=== PATIENT | male | born 1970 | race Caucasian/White ===

== ENCOUNTER 2023-06-09 06:54 | Emergency (ER) | payer OTHER, SELFPAY ==
[2023-06-09 07:03] VITALS: BP 158/111; PULSE 66; RESP 18; TEMP 36.4; O2SAT 98; BMI 22.3
--- NOTE | 2023-06-09 07:25 | CRLHL7_ITS ---
For Patients: As a result of the Century Cures Act, medical imaging exams and procedure reports are released immediately into your electronic medical record. You may view this report before your referring provider. If you have questions, please contact your health care provider. INDICATION: Right lower quadrant pain. TECHNIQUE: CT abdomen and pelvis acquired with 79 cc Isovue 370 IV contrast. COMPARISON: None. FINDINGS: Lower chest: Unremarkable. Liver: Unremarkable. Normal in size and attenuation. No suspicious masses. Gallbladder and bile ducts: Unremarkable. No stones or inflammation. No biliary dilatation. Pancreas: Unremarkable. No mass or inflammation. Spleen: Unremarkable. Normal in size. No masses. Adrenal glands: Unremarkable. No nodules. Kidneys: Unremarkable. No suspicious masses, stones, or hydronephrosis. GI tract: There is segmental circumferential low density wall thickening of the duodenum involving the 2nd segment of the duodenal sweep and, to a lesser degree, the duodenal bulb. Focal irregularity of the mucosa along the anterior aspect of the 2nd segment of the duodenum (series 2; images 49, 50 and series 6; image 44) is suspicious for an ulcer. Findings are consistent with duodenitis, most likely due to peptic ulcer disease. Periduodenal inflammatory fat stranding is in the anterior perirenal space. Normal appendix. Vasculature: Abdominal aorta is normal in caliber. Mesenteric arteries are patent. Lymph nodes: No lymphadenopathy. Peritoneum/Abdominal Wall: Unremarkable. No sign of mass or infiltration. No free air or significant free fluid. Pelvis: Unremarkable. Bones: T10-T11 and moderate disc degeneration with discogenic sclerosis of the anteroinferior T10 vertebral body. IMPRESSION: There is segmental circumferential low density wall thickening of the duodenum involving the 2nd segment of the duodenal sweep and, to a lesser degree, the duodenal bulb. Focal irregularity of the mucosa along the anterior aspect of the 2nd segment of the duodenum (series 2; images 49, 50 and series 6; image 44) is suspicious for an ulcer. Findings are consistent with duodenitis, most likely due to peptic ulcer disease. Periduodenal inflammatory fat stranding is in the anterior perirenal space. Gastroenterology consultation is recommended for consideration of further evaluation (endoscopy). Normal appendix. Please note that all CT scans at this facility use dose modulation, iterative reconstruction, and/or weight-based dosing when appropriate to reduce radiation dose to as low as reasonably achievable. Dictated by Junior Garner MD @ 06/09/2023 8:13:01 AM (Electronically Signed)
--- NOTE | 2023-06-09 07:31 | ED.GENADULT ---
HPI - General Adult General Chief complaint: Abdominal Pain <Mayte Duvall MD - Last Filed: 06/16/23 23:55> Stated complaint: stomach pain <Mayte Duvall MD - Last Filed: 06/16/23 23:55> Time Seen by Provider: 06/09/23 07:18 <Mayte Duvall MD - Last Filed: 06/16/23 23:55> History of Present Illness HPI narrative: 53-year-old male presents to the emergency department with generalized malaise and body aches but now developing periumbilical abdominal pain. Symptoms started 5 days ago, initially with the body aches and feeling chilled. He also had a mild headache which has now resolved. The next day he had sweats and generalized malaise. He slept the next couple of days, taking NyQuil for his symptoms. He did not have any cough or congestion. 2 days ago he started developing periumbilical area abdominal pain, nonradiating, constant and achy in nature. Poor appetite the last 3 days. Two days ago, he tried eating a bowl of cereal and it went okay. He has not had any nausea or vomiting. He said that when he went up to go to the bathroom, thinking that things would improve if he had a bowel movement, he had a brief syncopal spell that was witnessed by his . She said that he was only out a couple of seconds and she was able to help him back into bed and he has not experienced any similar episodes since. No rash, no pertinent travel. was ill with mild viral symptoms initially but she has recovered. No diarrhea, no bloody stools. Has not tried any pain medication to help with the abdominal pain. No prior history of abdominal surgeries, no long-term medications. Past medical history benign per his report, no allergies no medications. He is a smoker. ROS is notable for the generalized an abdominal symptoms as described above, otherwise denies times 12 systems. <Mayte Duvall MD - Last Filed: 06/16/23 23:55> Related Data Home medications: Previous Rx's Medication Instructions Recorded metronidazole 500 mg tablet 2,000 mg (4 x 500 mg) PO ONCE #4 06/09/23 tabs omeprazole 20 mg capsule,delayed 20 mg PO DAILY #30 caps 06/09/23 release <Mayte Duvall MD - Last Filed: 06/16/23 23:55> Allergies/adverse reactions: Allergies Allergy/AdvReac Type Severity Reaction Status Date / Time No Known Drug Allergies Allergy Unverified 06/16/23 13:38 <Mayte Duvall MD - Last Filed: 06/16/23 23:55> [facility] Medical History: Medical History (Updated 06/16/23 @ 13:43 by Geraldine Burns) Back pain (2016) ?M54.9 - Dorsalgia, unspecified (ICD-10) <Mayte Duvall MD - Last Filed: 06/16/23 23:55> Surgical History: Surgical History (Updated 06/16/23 @ 13:49 by Geraldine Burns) History of adenoidectomy ?Z90.89 - Acquired absence of other organs (ICD-10) History of placement of ear tubes ?Z96.22 - Myringotomy tube(s) status (ICD-10) History of oral surgery (10/29/11) ?Z98.890 - Other specified postprocedural states (ICD-10) <Mayte Duvall MD - Last Filed: 06/16/23 23:55> Social History: Social History Smoking Status: Current every day smoker What tobacco products do you use: cigarettes Smoking packs per day: 0.75 Smoking cigarettes per day: 15.0 Years smoked: 38 Smoking pack-years: 28.50 Do you use any of these nicotine containing products: None Second hand tobacco smoke exposure: Yes How often do you have a drink containing alcohol: monthly or less How many standard drinks containing alcohol do you have on a typical day: 1 or 2 How often do you have six or more drinks on one occasion: Never AUDIT-C Alcohol total score: 1 Non-prescribed substance use: marijuana (any form) Non-prescribed substance use details: smokes marijuana daily service: No <Mayte Duvall MD - Last Filed: 06/16/23 23:55> Exam Const: Vital Signs, click to edit/add: Vital Signs - 24 hr 06/09/23 07:03 Temperature 97.6 F Pulse Rate [Pulse Oximeter] 66 Respiratory Rate 18 Blood Pressure [Ri ght Upper Arm] 158/111 H Pulse Oximetry 98 Oxygen Delivery Me thod Room Air <Mayte Duvall MD - Last Filed: 06/16/23 23:55> Vital Signs, click to edit/add: Vital Signs - 24 hr 06/09/23 07:03 Temperature 97.6 F Pulse Rate [Pulse Oximeter] 66 Respiratory Rate 18 Blood Pressure [Ri ght Upper Arm] 158/111 H Pulse Oximetry 98 Oxygen Delivery Me thod Room Air <Cindi Phillips MD - Last Filed: 06/09/23 08:42> Documenting provider has reviewed patient's vital signs: yes <Mayte Duvall MD - Last Filed: 06/16/23 23:55> Common normals: no apparent distress and alert <Mayte Duvall MD - Last Filed: 06/16/23 23:55> Orientation/consciousness: Yes awake <Mayte Duvall MD - Last Filed: 06/16/23 23:55> Other: Appears nontoxic. Answers questions appropriately, no signs of delirium. <Mayte Duvall MD - Last Filed: 06/16/23 23:55> HENMT: Common normals: normocephalic <Mayte Duvall MD - Last Filed: 06/16/23 23:55> Head and scalp: normocephalic <Mayte Duvall MD - Last Filed: 06/16/23 23:55> Face and sinus: normal facial exam <Mayte Duvall MD - Last Filed: 06/16/23 23:55> Throat: posterior oropharynx normal <Mayte Duvall MD - Last Filed: 06/16/23 23:55> Other: Very poor dentition with multiple dental caries, broken teeth. <Mayte Duvall MD - Last Filed: 06/16/23 23:55> Eye: Common normals: conjunctivae normal <Mayte Duvall MD - Last Filed: 06/16/23 23:55> General eye: normal appearance of both eyes <Mayte Duvall MD - Last Filed: 06/16/23 23:55> Conjunctiva: conjunctiva(e) normal <Mayte Duvall MD - Last Filed: 06/16/23 23:55> Neck & C-Spine: Common normals: full ROM and no lymphadenopathy <Mayte Duvall MD - Last Filed: 06/16/23 23:55> Chest: Common normals: inspection of chest normal <Mayte Duvall MD - Last Filed: 06/16/23 23:55> Resp: Common normals: normal respiratory effort, no use of accessory muscles and clear to auscultation bilaterally <MD Sarah Nielson Last Filed: 06/16/23 23:55> Effort & inspection: able to speak in complete sentences <Mayte Duvall MD - Last Filed: 06/16/23 23:55> Auscultation: clear to auscultation bilaterally <Mayte Duvall MD - Last Filed: 06/16/23 23:55> Cardio: Common normals: regular rate, regular rhythm, S1 normal heart sound, S2 normal heart sound and no murmurs <Mayte Duvall MD - Last Filed: 06/16/23 23:55> Rate: regular rate <Mayte Duvall MD - Last Filed: 06/16/23 23:55> Rhythm: regular rhythm <Mayte Duvall MD - Last Filed: 06/16/23 23:55> Heart sounds: S1 normal and S2 normal <Mayte Duvall MD - Last Filed: 06/16/23 23:55> GI: Common normals: Normal to inspection, nondistended, normoactive bowel sounds present, soft to palpation, no hepatosplenomegaly and no masses <Mayte Duvall MD - Last Filed: 06/16/23 23:55> Palpation: soft and no hepatosplenomegaly <Mayte Duvall MD - Last Filed: 06/16/23 23:55> Other: Tender to palpation in right lower quadrant only. No rebound tenderness or guarding. <Mayte Duvall MD - Last Filed: 06/16/23 23:55> : Common normals: no CVA tenderness <Mayte Duvall MD - Last Filed: 06/16/23 23:55> Bladder/kidney exam: no CVA tenderness <Mayte Duvall MD - Last Filed: 06/16/23 23:55> Back & Pelvis: Common normals: no CVA tenderness <Mayte Duvall MD - Last Filed: 06/16/23 23:55> Extremity: Common normals: normal to inspection, normal capillary refill and no pedal edema <Mayte Duvall MD - Last Filed: 06/16/23 23:55> Neuro: Sensorium/orientation: awake and alert <Mayte Duvall MD - Last Filed: 06/16/23 23:55> Speech: speech normal <Mayte Duvall MD - Last Filed: 06/16/23 23:55> Motor exam: no movement abnormalities noted <Mayte Duvall MD - Last Filed: 06/16/23 23:55> Psych: Attitude: engaged <Mayte Duvall MD - Last Filed: 06/16/23 23:55> Activity/motor behavior: appropriate eye contact <Mayte Duvall MD - Last Filed: 06/16/23 23:55> Insight: insight good <Mayte Duvall MD - Last Filed: 06/16/23 23:55> Judgement: judgment good <Mayte Duvall MD - Last Filed: 06/16/23 23:55> Skin: Common normals: no rashes or lesions noted <Mayte Duvall MD - Last Filed: 06/16/23 23:55> General skin exam: no rashes or lesions noted <Mayte Duvall MD - Last Filed: 06/16/23 23:55> Course Course ED Course: Differential diagnosis including diverticulitis, appendicitis, viral enteritis, systemic viral infection like influenza, COVID or something similar. Cannot exclude pancreatitis, gallbladder disease or other intra-abdominal process. Stories overall concerning for infection and the syncopal episode is suspicious for dehydration and acute illness. Patient is declining pain medication for now. Will start an IV line, 1 L of normal saline, basic labs including lactate, metabolic panel, CRP, CBC, urinalysis and alcohol level. Viral swabs. Because of the right lower quadrant pain, will also order CT scan of the abdomen and pelvis. Anticipate handing over care to my in coming day shift partner. <Mayte Duvall MD - Last Filed: 06/16/23 23:55> Reevaluation(s) Reevaluation #1: I was asked to follow-up on the labs and imaging results of this patient. WBC was slightly elevated. The remainder of the blood work was unremarkable. Abdominal CT scan shows duodenitis likely secondary to peptic ulcer. Urinalysis returned and was positive for Trichomonas. We will add a chlamydia and gonorrhea to his urine tests which are pending at this time. And patient will be sent home with metronidazole. He is instructed to tell his sexual partners to get checked as well. Of note, patient denies any symptoms such as dysuria or penile discharge. <Cindi Phillips MD - Last Filed: 06/09/23 08:42> Vital Signs Vital signs: Initial Vital Signs Temperature 97.6 F 06/09/23 07:03 Temperature Source Temporal Artery Scan 06/09/23 07:03 Pulse Rate 66 06/09/23 07:03 Pulse Rhythm Regular 06/09/23 07:03 Respiratory Rate 18 06/09/23 07:03 Blood Pressure 158/111 H 06/09/23 07:03 Blood Pressure Mean 126 H 06/09/23 07:03 Blood Pressure Position Supine 06/09/23 07:03 Pulse Oximetry 98 06/09/23 07:03 Oxygen Delivery Method Room Air 06/09/23 07:03 Vital Signs Temperature 97.6 F 06/09/23 07:03 Pulse Rate 66 06/09/23 07:03 Respiratory Rate 18 06/09/23 07:03 Blood Pressure 158/111 H 06/09/23 07:03 Pulse Oximetry 98 06/09/23 07:03 Oxygen Delivery Method Room Air 06/09/23 07:03 Temperature 97.6 F 06/09/23 07:03 Pulse Rate 66 06/09/23 07:03 Respiratory Rate 18 06/09/23 07:03 Blood Pressure 158/111 H 06/09/23 07:03 Pulse Oximetry 98 06/09/23 07:03 Oxygen Delivery Method Room Air 06/09/23 07:03 <Mayte Duvall MD - Last Filed: 06/16/23 23:55> Initial Vital Signs Temperature 97.6 F 06/09/23 07:03 Temperature Source Temporal Artery Scan 06/09/23 07:03 Pulse Rate 66 06/09/23 07:03 Pulse Rhythm Regular 06/09/23 07:03 Respiratory Rate 18 06/09/23 07:03 Blood Pressure 158/111 H 06/09/23 07:03 Blood Pressure Mean 126 H 06/09/23 07:03 Blood Pressure Position Supine 06/09/23 07:03 Pulse Oximetry 98 06/09/23 07:03 Oxygen Delivery Method Room Air 06/09/23 07:03 Vital Signs Temperature 97.6 F 06/09/23 07:03 Pulse Rate 66 06/09/23 07:03 Respiratory Rate 18 06/09/23 07:03 Blood Pressure 158/111 H 06/09/23 07:03 Pulse Oximetry 98 06/09/23 07:03 Oxygen Delivery Method Room Air 06/09/23 07:03 Temperature 97.6 F 06/09/23 07:03 Pulse Rate 66 06/09/23 07:03 Respiratory Rate 18 06/09/23 07:03 Blood Pressure 158/111 H 06/09/23 07:03 Pulse Oximetry 98 06/09/23 07:03 Oxygen Delivery Method Room Air 06/09/23 07:03 <Cindi Phillips MD - Last Filed: 06/09/23 08:42> Medications Administered Medications: Discontinued Medications Generic Name Dose Route Start Last Admin Trade Name Freq PRN Reason Stop Dose Admin Sodium Chloride 1,000 mls @ 1,000 mls/hr 06/09/23 07:26 06/09/23 08:59 0.9 % Sodium Chloride 1000 Ml IV 06/09/23 08:25 Infused .Q1H MORENO Infusion <Mayte Duvall MD - Last Filed: 06/16/23 23:55> Discontinued Medications Generic Name Dose Route Start Last Admin Trade Name Freq PRN Reason Stop Dose Admin Sodium Chloride 1,000 mls @ 1,000 mls/hr 06/09/23 07:26 06/09/23 08:59 0.9 % Sodium Chloride 1000 Ml IV 06/09/23 08:25 Infused .Q1H MORENO Infusion <Cidni Phillips MD - Last Filed: 06/09/23 08:42> Medical Decision Making MDM Narrative Medical decision making narrative: 53-year-old male with duodenitis likely secondary to peptic ulcer disease. We discussed next steps and follow-up. <Cnidi Phillips MD - Last Filed: 06/09/23 08:42> Medical Records Medical records reviewed: Yes I reviewed the patient's medical records <Cindi Phillips MD - Last Filed: 06/09/23 08:42> Lab Data Lab results reviewed: Yes I reviewed the patient's lab results <Cindi Phillips MD - Last Filed: 06/09/23 08:42> Labs: Lab Results 06/09/23 06/09/23 Range/Units 07:40 07:45 WBC 12.16 H (4.50-11.00) K/uL RBC 5.69 (4.30-5.90) m/uL Hgb 16.5 (13.5-17.5) gm/dL Hct 48.2 (37.0-53.0) % MCV 85 (80-100) fL MCH 29 (26-34) pg MCHC 34 (32-36) gm/dL RDW Coeff of Dirk 14.5 (11.5-15.5) % Plt Count 343 (140-440) K/uL Neut % (Auto) 60.2 (42.0-72.0) % Lymph % (Auto) 22.5 (20-44) % [place] % (Auto) 16.6 H (0.0-11.0) % Eos % (Auto) 0.2 (0.0-7.0) % Baso % (Auto) 0.4 (0.0-3.0) % Neut # (Auto) 7.30 H (1.7-7.0) K/uL Lymph # (Auto) 2.70 (0.90-2.90) K/uL [place] # (Auto) 2.00 H (0.00-0.90) K/UL Eos # (Auto) 0.00 (0.00-0.50) K/uL Baso # (Auto) 0.00 (0.00-0.30) K/uL Abs Immat Gran (auto) 0.00 (0.00-0.30) K/uL Imm/Tot Granulo (auto) 0.1 % Diff Slide Review Acceptable Review (Acceptable) Sodium 139 (135-149) mmol/L Potassium 3.9 (3.6-5.1) mmol/L Chloride 104 (96-114) mmol/L Carbon Dioxide 27 (20-32) mmol/L Anion Gap 8 (7-15) mEq/L BUN 12 (7-30) mg/dL Creatinine 0.9 (0.5-1.5) mg/dL Estimated Creat Clear 98.56 Estimated GFR 103 ml/min Glucose 116 H (60-115) mg/dL Lactate 1.0 (0.5-1.9) mmol/L Calcium 8.8 (8.4-10.6) mg/dL Total Bilirubin 0.5 (0.1-1.5) mg/dL AST 29 (12-35) U/L ALT 22 (4-50) U/L Alkaline Phosphatase 87 (40-150) U/L C-Reactive Protein 0.7 (0.5-1.0) mg/dL Total Protein 7.3 (6.0-8.3) g/dL Albumin 4.3 (3.3-5.0) g/dL Lipase 51 (23-300) U/L Urine Color Yellow (Yellow) Urine Appearance Clear (Clear) Urine pH 6.5 (5.0-8.5) Ur Specific [place] 1.020 (1.000-1.030) Urine Protein 1+ A (Negative) Urine Glucose (UA) Negative (Negative) Urine Ketones 1+ A (Negative) Urine Blood 2+ A (Negative) Urine Nitrite Negative (Negative) Urine Bilirubin Negative (Negative) Urine Urobilinogen 4.0 A (0.2-1.0) Ur Leukocyte Esterase Negative (Negative) Urine RBC 0-2 (0-2) Urine WBC 2-5 (0-5) Ur Squamous Epith Cells Few (None-Few) Urine Bacteria Few A (None) Urine Mucus Few A (None) Urine Trichomonas Moderate A (None) Ethyl Alcohol < 0.01 L (0.01-0.03) % C.trachomatis Ampl DNA NOT DETECTED (No Detected) SARS-CoV-2 (PCR) POSITIVE SARS-CoV-2 A (Negative) Influenza Type A (PCR) Negative PCR FLU A (Negative) Influenza Type B (PCR) Negative PCR FLU B (Negative) N.gonorrhoeae Ampl DNA NOT DETECTED (No Detected) RSV (PCR) Negative PCR RSV (Negative) <Mayte Duvall MD - Last Filed: 06/16/23 23:55> Lab Results 06/09/23 06/09/23 Range/Units 07:40 07:45 WBC 12.16 H (4.50-11.00) K/uL RBC 5.69 (4.30-5.90) m/uL Hgb 16.5 (13.5-17.5) gm/dL Hct 48.2 (37.0-53.0) % MCV 85 (80-100) fL MCH 29 (26-34) pg MCHC 34 (32-36) gm/dL RDW Coeff of Dirk 14.5 (11.5-15.5) % Plt Count 343 (140-440) K/uL Neut % (Auto) 60.2 (42.0-72.0) % Lymph % (Auto) 22.5 (20-44) % [place] % (Auto) 16.6 H (0.0-11.0) % Eos % (Auto) 0.2 (0.0-7.0) % Baso % (Auto) 0.4 (0.0-3.0) % Neut # (Auto) 7.30 H (1.7-7.0) K/uL Lymph # (Auto) 2.70 (0.90-2.90) K/uL [place] # (Auto) 2.00 H (0.00-0.90) K/UL Eos # (Auto) 0.00 (0.00-0.50) K/uL Baso # (Auto) 0.00 (0.00-0.30) K/uL Abs Immat Gran (auto) 0.00 (0.00-0.30) K/uL Imm/Tot Granulo (auto) 0.1 % Diff Slide Review Acceptable Review (Acceptable) Sodium 139 (135-149) mmol/L Potassium 3.9 (3.6-5.1) mmol/L Chloride 104 (96-114) mmol/L Carbon Dioxide 27 (20-32) mmol/L Anion Gap 8 (7-15) mEq/L BUN 12 (7-30) mg/dL Creatinine 0.9 (0.5-1.5) mg/dL Estimated Creat Clear 98.56 Estimated GFR 103 ml/min Glucose 116 H (60-115) mg/dL Lactate 1.0 (0.5-1.9) mmol/L Calcium 8.8 (8.4-10.6) mg/dL Total Bilirubin 0.5 (0.1-1.5) mg/dL AST 29 (12-35) U/L ALT 22 (4-50) U/L Alkaline Phosphatase 87 (40-150) U/L C-Reactive Protein 0.7 (0.5-1.0) mg/dL Total Protein 7.3 (6.0-8.3) g/dL Albumin 4.3 (3.3-5.0) g/dL Lipase 51 (23-300) U/L Urine Color Yellow (Yellow) Urine Appearance Clear (Clear) Urine pH 6.5 (5.0-8.5) Ur Specific [place] 1.020 (1.000-1.030) Urine Protein 1+ A (Negative) Urine Glucose (UA) Negative (Negative) Urine Ketones 1+ A (Negative) Urine Blood 2+ A (Negative) Urine Nitrite Negative (Negative) Urine Bilirubin Negative (Negative) Urine Urobilinogen 4.0 A (0.2-1.0) Ur Leukocyte Esterase Negative (Negative) Urine RBC 0-2 (0-2) Urine WBC 2-5 (0-5) Ur Squamous Epith Cells Few (None-Few) Urine Bacteria Few A (None) Urine Mucus Few A (None) Urine Trichomonas Moderate A (None) Ethyl Alcohol < 0.01 L (0.01-0.03) % C.trachomatis Ampl DNA NOT DETECTED (No Detected) SARS-CoV-2 (PCR) POSITIVE SARS-CoV-2 A (Negative) Influenza Type A (PCR) Negative PCR FLU A (Negative) Influenza Type B (PCR) Negative PCR FLU B (Negative) N.gonorrhoeae Ampl DNA NOT DETECTED (No Detected) RSV (PCR) Negative PCR RSV (Negative) <Cindi Phillips MD - Last Filed: 06/09/23 08:42> Imaging Data CT scan - abdomen: Attestation: I have reviewed the pertinent imaging results. <Cindi Phillips MD - Last Filed: 06/09/23 08:42> Radiologist's impression: CT abdomen and pelvis acquired with 79 cc Isovue 370 IV contrast. COMPARISON: None. FINDINGS: Lower chest: Unremarkable. Liver: Unremarkable. Normal in size and attenuation. No suspicious masses. Gallbladder and bile ducts: Unremarkable. No stones or inflammation. No biliary dilatation. Pancreas: Unremarkable. No mass or inflammation. Spleen: Unremarkable. Normal in size. No masses. Adrenal glands: Unremarkable. No nodules. Kidneys: Unremarkable. No suspicious masses, stones, or hydronephrosis. GI tract: There is segmental circumferential low density wall thickening of the duodenum involving the 2nd segment of the duodenal sweep and, to a lesser degree, the duodenal bulb. Focal irregularity of the mucosa along the anterior aspect of the 2nd segment of the duodenum (series 2; images 49, 50 and series 6; image 44) is suspicious for an ulcer. Findings are consistent with duodenitis, most likely due to peptic ulcer disease. Periduodenal inflammatory fat stranding is in the anterior perirenal space. Normal appendix. Vasculature: Abdominal aorta is normal in caliber. Mesenteric arteries are patent. Lymph nodes: No lymphadenopathy. Peritoneum/Abdominal Wall: Unremarkable. No sign of mass or infiltration. No free air or significant free fluid. Pelvis: Unremarkable. Bones: T10-T11 and moderate disc degeneration with discogenic sclerosis of the anteroinferior T10 vertebral body. IMPRESSION: There is segmental circumferential low density wall thickening of the duodenum involving the 2nd segment of the duodenal sweep and, to a lesser degree, the duodenal bulb. Focal irregularity of the mucosa along the anterior aspect of the 2nd segment of the duodenum (series 2; images 49, 50 and series 6; image 44) is suspicious for an ulcer. Findings are consistent with duodenitis, most likely due to peptic ulcer disease. Periduodenal inflammatory fat stranding is in the anterior perirenal space. Gastroenterology consultation is recommended for consideration of further evaluation (endoscopy). Normal appendix. <Cindi Phillips MD - Last Filed: 06/09/23 08:42> Discharge Plan Discharge Clinical Impression: Peptic ulcer, Duodenitis, Trichomoniasis <Mayte Duvall MD - Last Filed: 06/16/23 23:55> Patient Disposition: Home, Self-Care <Mayte Duvall MD - Last Filed: 06/16/23 23:55> Condition: Stable <Mayte Duvall MD - Last Filed: 06/16/23 23:55> Additional Instructions: Avoid alcohol, avoid Anti-inflammatory medications such as ibuprofen and Aleve, avoid smoking. Start daily Omeprazole - this can be purchased [id number], however a prescription has been sent for you and will be ready for pickup. You do need to establish care with a primary care provider: Appointment will be made for you today. You will likely need to have an upper endoscopy done, this is when a camera was placed into the stomach sure you. Your primary care provider can schedule this for you. Please take this paperwork with you when you see your primary care provider. You have also been diagnosed with trichomoniasis which is a sexually transmitted infection. Your partner should be evaluated for this infection as well. You need to take an antibiotic to treat this, antibiotic has been sent to the pharmacy for you. Follow up appointment is scheduled at the [facility] on 06/18 with a 11:30am appointment time. Please arrive at 11:20am to check in and complete paperwork. If you have any questions or need to reschedule, please call [phone][place] [address] <Mayte Duvall MD - Last Filed: 06/16/23 23:55> Prescriptions: New omeprazole 20 mg capsule,delayed release(DR/EC) 20 mg PO DAILY Qty: 30 1RF metronidazole 500 mg tablet 2,000 mg PO ONCE Qty: 4 0RF <Mayte Duvall MD - Last Filed: 06/16/23 23:55> Follow Up/Referrals: Provider,Not a Local [Primary Care Provider] - <Mayte Duvall MD - Last Filed: 06/16/23 23:55> Stand Alone Forms: MyHealth Info Instructions <Mayte Duvall MD - Last Filed: 06/16/23 23:55>
[2023-06-09 07:52] LABS: Basophils Percent Auto 0.4 % (0.0-3.0); Eosinophils Percent Auto 0.2 % (0.0-7.0); Hematocrit 48.2 % (37.0-53.0); Hemoglobin* 16.5 gm/dL (13.5-17.5); Immature Granulocytes Pct Auto 0.1 %; Lymphocytes Percent Auto 22.5 % (20-44); Mean Corpuscular HGB Conc 34 gm/dL (32-36); Mean Corpuscular Hemoglobin 29 pg (26-34); Mean Corpuscular Volume 85 fL (80-100); Monocytes Percent Auto 16.6 % (0.0-11.0); Neutrophils Percent Auto 60.2 % (42.0-72.0); Platelet Count* 343 K/uL (140-440); RDW Coefficient of Variation % 14.5 % (11.5-15.5); Red Blood Count 5.69 m/uL (4.30-5.90); White Blood Count* 12.16 K/uL (4.50-11.00)
[2023-06-09 07:57] LABS: Slide Review Reflex Yes
[2023-06-09] MEDS: 0.9 % SODIUM CHLORIDE 1000 ml 1,000 ML IV (08:06)
[2023-06-09 08:07] LABS: Albumin* 4.3 g/dL (3.3-5.0); Appearance Urine Clear (Clear); Bilirubin Urine Negative (Negative); Blood Urine 2+ (Negative); Chloride* 104 mmol/L (96-114); Color Urine Yellow (Yellow); Glucose Urine Negative (Negative); Ketones Urine 1+ (Negative); Leukocyte Esterase Urine Negative (Negative); Nitrite Urine Negative (Negative); Protein Urine 1+ (Negative); pH Urine 6.5 (5.0-8.5)
[2023-06-09 08:08] LABS: Potassium* 3.9 mmol/L (3.6-5.1); Sodium* 139 mmol/L (135-149)
[2023-06-09 08:10] LABS: Alkaline Phosphatase* 87 U/L (40-150); Anion Gap 8 mEq/L (7-15); Aspartate Amino Transferase* 29 U/L (12-35); Bilirubin Total* 0.5 mg/dL (0.1-1.5); Blood Urea Nitrogen* 12 mg/dL (7-30); Carbon Dioxide* 27 mmol/L (20-32); Creatinine* 0.9 mg/dL (0.5-1.5); Est. Creatinine Clearance* 98.56; Estimated Glomerular Filt Rate 103 ml/min; Lipase* 51 U/L (23-300); Total Protein* 7.3 g/dL (6.0-8.3)
[2023-06-09 08:11] LABS: Alanine Aminotransferase* 22 U/L (4-50); Calcium* 8.8 mg/dL (8.4-10.6); Ethanol* < 0.01 % (0.01-0.03); Glucose* 116 mg/dL (60-115)
[2023-06-09 08:13] LABS: C Reactive Protein* 0.7 mg/dL (0.5-1.0)
[2023-06-09 08:24] LABS: Bacteria Urine Few; Mucus Urine Few; RBC Urine 0-2 (0-2); Squamous Epithelial Cell Urine Few (None-Few)
[2023-06-09 08:25] LABS: Trichomonas Urine Moderate
[2023-06-09 08:38] LABS: PCR FLU A Negative PCR FLU A (Negative); PCR FLU B Negative PCR FLU B (Negative); PCR RSV Negative PCR RSV (Negative); Slide Review Acceptable Review (Acceptable)
[2023-06-09 08:50] LABS: SARS PCR* POSITIVE SARS-CoV-2 (Negative)
[2023-06-09 10:24] LABS: Chlamydia DNA Amplified* NOT DETECTED (No Detected); GC DNA Amplified* NOT DETECTED (No Detected)
== END 2023-06-09 08:50 | disposition home or self-care (01) ==
PROVIDERS: Family Medicine; Emergency Provider Family Medicine
DX: K27.9 Peptic ulcer, site unspecified, unspecified as acute or chronic, without hemorrhage or perforation (principal); K29.80 Duodenitis without bleeding; A59.9 Trichomoniasis, unspecified
CPT/HCPCS: 36415; 74177; 80053; 81003; 81015; 82077; 83605; 83690; 85025; 86140; 87086; 87491; 87591; 87631; 96360; 99284; J7030; Q9967

== ENCOUNTER 2023-07-27 07:37 | Outpatient (CLI) | payer OTHER, SELFPAY | END 2023-07-27 07:38 | disposition home or self-care (01) | PROVIDERS: PCP Family Medicine; Visit Provider Family Medicine | DX: Z12.5 Encounter for screening for malignant neoplasm of prostate (principal); Z13.220 Encounter for screening for lipoid disorders; Z13.228 Encounter for screening for other metabolic disorders; Z13.9 Encounter for screening, unspecified | CPT/HCPCS: 80053; 80061; 86803; G0103 ==

== ENCOUNTER 2023-08-05 15:36 | Outpatient (CLI) | payer OTHER, SELFPAY ==
--- OUTSIDE RECORDS SUMMARY | 2023-08-05 15:38 | XMS_ITS | Clinical Summary ---
Author Name Unknown Organization [facility] Address [place], [place] [address] Care Team Providers Care Finger Lift Operator Name Role Phone Laurie October OSITO Primary Care Provider [phone] Allergies No known active allergies Medications Medication Sig Dispensed Refills Start Date End Date Status HYDROcodone-acetam inophen, 5-500 mg, (VICODIN) Tab tablet Take 1-2 tablets by mouth every 4 hours if needed for Pain. Max acetaminophen dose: 4000mg in 24 hrs. 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 Social History Tobacco Use Types Packs/Day Years Used Date Smoking Tobacco: Some Days Cigarettes Alcohol Use Standard Drinks/Week Comments Not Asked 0 (1 standard drink = 0.6 oz pur e alcohol) Sex and Gender Information Value Date Recorded Sex Assigned at Not on file Gender Identity Not on file Sexual Orientation Not on file Obstetrics History Last Filed Vital Signs Vital Sign Reading Time Taken Comments Blood Pressure 129/80 10/29/2011 11:30 AM CDT Pulse 77 10/29/2011 11:30 AM CDT Temperature 37 ??C (98.6 ??F) 10/29/2011 11:00 AM CDT Respiratory Rate 16 10/29/2011 11:30 AM CDT Oxygen Saturation 98% 10/29/2011 11:30 AM CDT Inhaled Oxygen Concentration - - Weight 72.6 kg (160 lb) 10/29/2011 8:15 AM CDT Height 180.3 cm (5' 11) 10/29/2011 8:15 AM CDT Body Mass Index 22.32 10/29/2011 8:15 AM CDT Plan of Treatment Not on file Advance Directives Latest Code Status on File Code Status Date Activated Date Inactivated Comments Full Code 10/29/2011 10:02 AM 10/29/2011 1:50 PM Care Teams Finger Lift Operator Relationship Specialty Start Date End Date LaurieOctober OSITO Arias PCP - General Physician Vice Chair 10/23/11
--- NOTE | 2023-08-05 16:00 | CRLHL7_ITS ---
For Patients: As a result of the Century Cures Act, medical imaging exams and procedure reports are released immediately into your electronic medical record. You may view this report before your referring provider. If you have questions, please contact your health care provider. INDICATION: Lung cancer screening. History of smoking. High risk patient with greater than 35 pack-year smoking history. TECHNIQUE: Low-dose lung cancer screening non-contrast CT chest. Dose reduction techniques were used. COMPARISON: CT abdomen 06/09/2023 FINDINGS: NODULES: 5.5 millimeter nodule in the lingula, . 6.3 millimeter nodule in the right middle lobe, . These nodules are similar. Other smaller nodules are present elsewhere bilaterally. LUNGS AND PLEURA: Paraseptal emphysema with biapical pleural parenchymal scarring. MEDIASTINUM: No adenopathy. CORONARY ARTERY CALCIFICATION: None. LIMITED UPPER ABDOMEN: Mild fatty liver. MUSCULOSKELETAL: No fracture. IMPRESSION: Bilateral pulmonary nodules measuring up to 6.3 millimeters. LUNG-RADS CATEGORY: 3: Probably benign. RADIOLOGIST RECOMMENDATION: Low-dose CT chest in 6 months. Please note that all CT scans at this facility use dose modulation, iterative reconstruction, and/or weight-based dosing when appropriate to reduce radiation dose to as low as reasonably achievable. Dictated by Smooth Gudino MD @ 08/06/2023 10:36:39 AM (Electronically Signed)
== END 2023-08-05 15:37 | disposition home or self-care (01) ==
LOC: CT 15:37
PROVIDERS: PCP Family Medicine; Visit Provider Family Medicine
DX: Z12.2 Encounter for screening for malignant neoplasm of respiratory organs (principal); R91.8 Other nonspecific abnormal finding of lung field; Z72.0 Tobacco use
CPT/HCPCS: 71271